=== PATIENT | male | born 1970 | race Caucasian/White ===

== ENCOUNTER 2023-03-01 08:32 | Day surgery (SDC) | payer OTHER, SELFPAY ==
[2023-02-27 08:25] VITALS: BMI 25.5
[2023-03-01 08:59] VITALS: BP 129/85; PULSE 66; RESP 16; TEMP 36.5; O2SAT 97; BMI 25.7
[2023-03-01] MEDS: sodium chloride 0.9% 1,000 ML 30 ML IV (09:06)
--- NOTE | 2023-03-01 09:06 | P.HP_ITS ---
Providers/Chief Complaint Primary Care Provider: Sung Samuel DO Chief Complaint: Z12.11, K21.9 History of Present Illness Jamaal Metzger is a 52 year old male Review of Systems 2 General: Reports: 10 or more systems reviewed and unremarkable except in HPI and below Medications/Allergies Home Medications Medication Instructions Recorded Confirmed Last Taken Type pantoprazole 40 mg tablet,delayed 40 mg PO BID 6 weeks #84 tabs 01/19/23 03/01/23 02/28/23 Rx release (Protonix) Allergies Allergy/AdvReac Type Severity Reaction Status Date / Time No Known Allergies Allergy Unverified 02/27/23 08:31 PFSH Acute PFSH: Surgical History (Updated 01/19/23 @ 10:24 by Ruben Issa DO) Hx of appendectomy Hx of elbow surgery left side Hx of shoulder surgery bilateral Family History Denies family history of Anesthesia complication Social History Smoking and tobacco status: current every day smoker smokeless tobacco Smokeless tobacco user: chewing tobacco Second hand smoke exposure: No Smoking risk assessment/counseling performed?: No Alcohol intake: current Alcohol intake frequency: holidays/special occasions only Desire information about alcohol rehabilitation?: No Counseling given: No Substance/Drug Use: never Desire information about substance/drug rehabilitation?: No Counseling given: No Adopted: No Lives independently: Yes Household members: spouse Housing: House Marital status: service: No Current occupational status: employed Current occupational exposures/hazards: No Pets and animals: No Do you think of yourself as: Straight/Heterosexual Current gender identity: Male Vitals/I&O/Wt Last Vital Signs Temp 97.7 F 03/01/23 08:59 Pulse 66 03/01/23 08:59 Resp 16 03/01/23 08:59 BP 129/85 03/01/23 08:59 Pulse Ox 97 03/01/23 08:59 O2 Del Method Room Air 03/01/23 08:59 Weight last 48 hrs Weight 169 lb A&P Assessment and plan (1) Screening for malignant neoplasm of colon: (2) GERD without esophagitis: Plan EGD and screening colonoscopy Attestations Medical Necessity Statement*: Home Coding Level of Care Code Acute Code for Chg Fwd Diagnoses Screening for malignant neoplasm of colon Z12.11 GERD without esophagitis K21.9
--- NOTE | 2023-03-01 09:15 | ANES.PREANE2 ---
Pre-Anesthetic Assessment Height/Weight: Height 1.73 m Weight 76.657 kg Temp Pulse Resp BP Pulse Ox O2 Del Method 97.7 F 66 16 129/85 97 Room Air 03/01/23 08:59 03/01/23 08:59 03/01/23 08:59 03/01/23 08:59 03/01/23 08:59 03/01/23 08:59 Preop Diagnosis: Screening/GERD Operation Date: 03/01/23 09:30 Proposed Procedures p [id number] EGD 84261 Colonoscopy Z12.11,K21.9(Not Applicable) - Ruben Issa DO s Colonoscopy(Not Applicable) - Ruben Issa DO Familial anesthetic complications: None Was Beta Giselle taken within 24 hours: N/A Was Clonidine taken within 24 hours: N/A Last intake: Intake Last Liquid Date 02/28/23 Last Liquid Time 22:00 Last Solid Date 02/27/23 Last Solid Time 15:00 Social Tobacco (Chew) and No alcohol Exam alert, oriented x 3, clear to auscultation bilaterally and regular rate & rhythm Airway Submandibular: within normal limits Cervical ROM: within normal limits Mallampati: Class II Dentition: full History/ROS No significant history except as noted and No significant complaints Pulmonary None reported CV/HEM Arrythmia (30 years ago, due to caffeine) None reported Hepatic None reported GI Gastroesophageal Reflux Disease (Well controlled with med) Metabolic None reported Musc/skel None reported Neuropsych None reported Anesthetic Plan ASA status: 1 Anesthesia: Anesthesia Evaluation, General and MAC Risk of > 500 ml blood loss (7ml/kg in children): No Medications/Allergies Home Medications Medication Instructions Recorded Confirmed Last Taken Type pantoprazole 40 mg tablet,delayed 40 mg PO BID 6 weeks #84 tabs 01/19/23 03/01/23 02/28/23 Rx release (Protonix) Allergies Allergy/AdvReac Type Severity Reaction Status Date / Time No Known Allergies Allergy Unverified 02/27/23 08:31 Current Medications Generic Name Dose Route Start Last Admin Trade Name Freq PRN Reason Stop Dose Admin Sodium Chloride 1,000 mls @ 30 mls/hr 03/01/23 08:45 03/01/23 09:06 Sodium Chloride 0.9% IV 03/02/23 08:44 30 mls/hr .Q24H JOHNATHAN Administration PFSH Anesthesia Surgical History (Updated 01/19/23 @ 10:24 by Ruben Issa DO) Hx of appendectomy Hx of elbow surgery left side Hx of shoulder surgery bilateral Family History Denies family history of Anesthesia complication Social History Smoking and tobacco status: current every day smoker smokeless tobacco Smokeless tobacco user: chewing tobacco Second hand smoke exposure: No Smoking risk assessment/counseling performed?: No Alcohol intake: current Alcohol intake frequency: holidays/special occasions only Desire information about alcohol rehabilitation?: No Counseling given: No Substance/Drug Use: never Desire information about substance/drug rehabilitation?: No Counseling given: No Adopted: No Lives independently: Yes Household members: spouse Housing: House Marital status: service: No Current occupational status: employed Current occupational exposures/hazards: No Pets and animals: No Do you think of yourself as: Straight/Heterosexual Current gender identity: Male Data Anesthesia Cardiac Studies: No Data to Display
[2023-03-01 09:53] VITALS: BP 97/70; PULSE 69; RESP 16; TEMP 36.2; O2SAT 93
[2023-03-01 10:00] VITALS: BP 105/72; PULSE 65; RESP 16; O2SAT 90
[2023-03-01 10:12] VITALS: BP 111/71; PULSE 66; RESP 18; O2SAT 93
[2023-03-01 10:18] VITALS: BP 118/82; PULSE 67; RESP 18; O2SAT 99
== END 2023-03-01 10:37 | disposition home or self-care (01) ==
PROVIDERS: PCP Family Medicine; Visit Provider Surgery
PROC: 0DJ08ZZ Inspection of Upper Intestinal Tract, Via Natural or Artificial Opening Endoscopic (ICD-10-PCS; CPT 43235; principal; 2023-03-01 09:30)
PROC: 0DJD8ZZ Inspection of Lower Intestinal Tract, Via Natural or Artificial Opening Endoscopic (ICD-10-PCS; CPT 45378; 2023-03-01 09:30)
DX: Z12.11 Encounter for screening for malignant neoplasm of colon (principal); K21.9 Gastro-esophageal reflux disease without esophagitis; K57.30 Diverticulosis of large intestine without perforation or abscess without bleeding; D12.4 Benign neoplasm of descending colon; F17.220 Nicotine dependence, chewing tobacco, uncomplicated; K44.9 Diaphragmatic hernia without obstruction or gangrene
CPT/HCPCS: 43239; 45385; 88305; J2704; J7030

== ENCOUNTER 2023-05-05 09:02 | Emergency (ER) | payer OTHER, SELFPAY ==
[2023-05-05 09:06] VITALS: BP 142/89; PULSE 81; RESP 18; TEMP 36.8; O2SAT 96; BMI 26.6
--- NOTE | 2023-05-05 09:25 | XRR_ITS ---
PROCEDURE INFORMATION: Exam: XR Thoracic Spine Exam date and time: 05/05/2023 9:43 AM Age: 52 years old Clinical indication: Injury or trauma; Other: Mid back pain post fall TECHNIQUE: Imaging protocol: Radiologic exam of the thoracic spine. Views: 3 views. COMPARISON: No relevant prior studies available. FINDINGS: Bones/joints: Normal. No acute fracture. Normal alignment. The perivertebral soft tissues are normal. No significant degenerative disc disease. Soft tissues: Unremarkable. XR/XR thoracic spine 3V* [id number] IMPRESSION: No acute findings.
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
[2023-05-05 10:00] VITALS: RESP 16
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
--- NOTE | 2023-05-05 11:19 | DCPLANNER ---
Referral was sent to ortho on 05/05/23 at 1120. clinic to contact patient.
== END 2023-05-05 11:03 | disposition home or self-care (01) ==
PROVIDERS: Emergency Provider Physician Assistant; PCP Family Medicine
DX: S22.068A Other fracture of T7-T8 thoracic vertebra, initial encounter for closed fracture (principal); S22.078A Other fracture of T9-T10 vertebra, initial encounter for closed fracture; F17.220 Nicotine dependence, chewing tobacco, uncomplicated; V19.3XXA Pedal cyclist (driver) (passenger) injured in unspecified nontraffic accident, initial encounter
CPT/HCPCS: 72072; 72128; 99284

== ENCOUNTER → 2024-12-17 09:13 | Outpatient (BNVA) | payer OTHER, SELFPAY | PROVIDERS: PCP Family Medicine; Visit Provider Family Medicine Adult Medicine | DX: R11.0 Nausea (principal); R10.9 Unspecified abdominal pain | CPT/HCPCS: 80053; 80061; 83690; 85025 ==

== ENCOUNTER 2025-01-14 08:33 | Day surgery (SDC) | payer OTHER, SELFPAY ==
[2025-01-14 08:48] VITALS: BP 108/79; PULSE 71; RESP 18; TEMP 36.2; O2SAT 94; BMI 27.3
--- NOTE | 2025-01-14 09:30 | ANES.PREANE2 ---
Pre-Anesthetic Assessment Height/Weight: Height 1.73 m Weight 81.647 kg Temp Pulse Resp BP Pulse Ox O2 Del Method 97.2 F L 71 18 108/79 94 Room Air 01/14/25 08:48 01/14/25 08:48 01/14/25 08:48 01/14/25 08:48 01/14/25 08:48 01/14/25 08:48 Preop Diagnosis: nausea Operation Date: 01/14/25 09:45 Proposed Procedures p EGD with Biopsy [id number], K21.9(Not Applicable) - Anil Lyon MD Was Beta Giselle taken within 24 hours: N/A Was Clonidine taken within 24 hours: N/A Last intake: Intake Last Liquid Date 01/13/25 Last Liquid Time 22:00 Last Solid Date 01/13/25 Last Solid Time 18:00 Social No alcohol and No tobacco Exam alert, oriented x 3, clear to auscultation bilaterally and regular rate & rhythm Airway Submandibular: within normal limits Cervical ROM: within normal limits Mallampati: Class II Dentition: full History/ROS No significant history except as noted and No significant complaints Pulmonary None reported CV/HEM None reported None reported Hepatic None reported GI Nausea Metabolic None reported Musc/skel None reported Neuropsych None reported Anesthetic Plan ASA status: 1 Anesthesia: Anesthesia Evaluation and MAC Risk of > 500 ml blood loss (7ml/kg in children): No Medications/Allergies Home Medications ?Medication ?Instructions ?Recorded ?Confirmed ?Last Taken ?Type pantoprazole 20 mg tablet,delayed 20 mg PO DAILY 12/26/24 01/13/25 01/13/25 History release (Protonix) Allergies Allergy/AdvReac Type Severity Reaction Status Date / Time No Known Allergies Allergy Verified 12/26/24 10:02 Current Medications Generic Name Dose Route Start Last Admin Trade Name Freq PRN Reason Stop Dose Admin Sodium Chloride 1,000 mls @ 15 mls/hr 01/14/25 08:38 01/14/25 08:56 Sodium Chloride 0.9% IV 01/15/25 08:37 15 mls/hr .Q24H PRN Administration COLONOSCOPY FLUIDS PFSH Anesthesia Surgical History Hx of appendectomy Hx of shoulder surgery bilateral Hx of elbow surgery left side Family History Denies family history of Anesthesia complication Social History Smoking and tobacco/nicotine status: never used tobacco/nicotine Second hand smoke exposure: No Alcohol intake: current Alcohol intake frequency: holidays/special occasions only Substance/Drug Use: never Adopted: No Lives independently: Yes Household members: spouse Housing: House Marital status: service: No Current occupational status: employed Current occupational exposures/hazards: No Pets and animals: No Do you think of yourself as: Straight/Heterosexual Current gender identity: Male
--- NOTE | 2025-01-14 09:56 | W.PM.OPSUD ---
Surgery/Procedure H&P Update DATE OF PROCEDURE: January 14, 2025 DATE H&P PERFORMED: 12/26/24 H&P UPDATE INFORMATION: I have reviewed H&P completed within last 30 days, I have examined patient prior to procedure and No changes to prior documentation PREOP DIAGNOSIS: nausea PLANNED PROCEDURE: Operation Date: 01/14/25 09:45 Proposed Procedures p EGD with Biopsy [id number], K21.9(Not Applicable) - Anil Lyon MD
[2025-01-14 10:17] VITALS: BP 100/76; PULSE 78; RESP 16; TEMP 36.1; O2SAT 93
--- NOTE | 2025-01-14 10:27 | ANE.PACU2 ---
Inpatient post-anesthesia follow up: Airway intact: Yes Vital signs: Temperature 97 F Pulse Rate 78 Respiratory Rate 16 Blood Pressure 100/76 Pulse Oximetry 93 Oxygen Delivery Me thod Nasal Cannula Oxygen Flow Rate 3 Fraction of Inspir ed Oxygen Hydration adequate: Yes Nausea and vomiting: No Pain level: 1 Mental status: Baseline
[2025-01-14 11:03] VITALS: BP 113/82; PULSE 71; RESP 16; O2SAT 94
== END 2025-01-14 11:03 | disposition home or self-care (01) ==
PROVIDERS: PCP Family Medicine; Visit Provider Student in an Organized Health Care Education/Training Program
PROC: 0DJ08ZZ Inspection of Upper Intestinal Tract, Via Natural or Artificial Opening Endoscopic (ICD-10-PCS; principal; 2025-01-14 09:45)
DX: K29.50 Unspecified chronic gastritis without bleeding (principal); K21.9 Gastro-esophageal reflux disease without esophagitis; Z87.11 Personal history of peptic ulcer disease
CPT/HCPCS: 43239; 88305; J2704; J7030

== ENCOUNTER 2025-03-11 08:20 | Outpatient (CLI) | payer OTHER, SELFPAY ==
[2025-03-11 09:41] LABS: Alanine Aminotransferase 15 U/L (0-41); Albumin Level 4.3 g/dL (3.5-5.2); Alkaline Phosphatase 78 U/L (40-130); Anion Gap 15.0 (5-19); Aspartate Amino Transferase 14 U/L (0-40); Blood Urea Nitrogen 10 mg/dL (6-20); Calcium 9.1 mg/dL (8.5-10.5); Carbon Dioxide 24 mmol/L (22-29); Chloride 107 mmol/L (98-107); Globulin 2.6 g/dL (1.3-4.6); Glucose 115 mg/dL (65-115); Lipase 19 U/L (13-60); Osmolality Calculated 294 mOsm/kg (285-295); Potassium 4.0 mmol/L (3.5-5.1); Sodium 142 mmol/L (136-145); Total Protein 6.9 g/dL (6.6-8.7)
[2025-03-12 08:34] LABS: Amylase 40 U/L (21-101)
[2025-03-13 02:54] LABS: Tissue Transglutaminse AB IGA <1.0 U/mL
== END 2025-03-11 08:21 | disposition home or self-care (01) ==
PROVIDERS: PCP Family Medicine; Visit Provider Family Medicine
DX: K29.90 Gastroduodenitis, unspecified, without bleeding (principal); R63.4 Abnormal weight loss; R10.13 Epigastric pain; R19.4 Change in bowel habit
CPT/HCPCS: 36415; 80053; 82150; 82785; 83690; 86001; 86003; 86008; 86364

== ENCOUNTER 2025-03-11 10:53 | Outpatient (CLI) | payer OTHER, SELFPAY ==
--- NOTE | 2025-03-11 11:00 | CT_ITS ---
WS: [id number] CT abdomen pelvis wo con [id number] REASON FOR EXAM: K29.90 - Gastroduodenitis, unspecified, without bleeding IV CONTRAST ADMINISTERED: None. TECHNIQUE: Multiple axial images without intravenous or oral contrast. Coronal and sagittal reconstructions obtained. COMPARISON EXAMINATION: None TOTAL EXAM DLP: 356.[address] scans at [facility] use at least one of these dose optimization techniques: automated exposure control; mA and/or kV adjustment per patient size (includes targeted exams where dose is matched to clinical indication); or iterative reconstruction. FINDINGS: The liver, spleen, pancreas, and gallbladder are unremarkable. The adrenals are normal. No renal calculus or renal mass. 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 No adenopathy, mass, focal fluid collection, or free fluid. Appendectomy by history. No bowel abnormality. PELVIS: Moderate diverticular disease of the sigmoid colon without evidence of diverticulitis. No mass, adenopathy, focal fluid collection, or free fluid. Lumbar spine and bony pelvis are unremarkable. CT/CT abdomen pelvis wo con [id number] IMPRESSION: Moderate diverticular disease. Examination of the abdomen and pelvis is otherwi se unremarkable.
== END 2025-03-11 10:54 | disposition home or self-care (01) ==
LOC: RAD 10:56
PROVIDERS: PCP Family Medicine; Visit Provider Family Medicine
DX: K29.90 Gastroduodenitis, unspecified, without bleeding (principal); R63.4 Abnormal weight loss; R10.13 Epigastric pain; R19.4 Change in bowel habit
CPT/HCPCS: 74176